=== PATIENT | male | born 1995 | race Caucasian/White ===

== ENCOUNTER 2018-01-19 22:38 | Emergency (ER) | payer OTHER ==
--- NOTE | 2018-01-19 22:42 | EDPHY ---
H & P Time Seen by Provider: 01/19/18 22:42 HPI/ROS: HPI CHIEF COMPLAINT: Abdominal pain right upper quadrant. HISTORY OF PRESENT ILLNESS: 22-year-old male, presents emergency room with right upper quadrant abdominal pain. Patient states he has had this since last night. He reports to me that he ate a large amount of pizza last night, large amount of alcohol and candy. During the night he developed some right upper quadrant abdominal pain that is rather persistent. Sharp stabbing does not radiate. Stays focally tenderness right upper quadrant. Denies chest pain or shortness of breath, denies pleuritic pain, denies cough. Pain is located right upper quadrant. It is tender palpation on exam. He has not been vomiting. No diarrhea. He has had nausea. It has been rather constant. Past Medical History: Denies medical history Past Surgical History: Denies surgical history Social History: Smokes tobacco daily marijuana daily and binge drink alcohol this weekend. Family History: Noncontributory ROS REVIEW OF SYSTEMS: 10 Systems were reviewed and negative with the exception of the elements mentioned in the history of present illness. Exam Constitutional triage nursing summary reviewed, vital signs reviewed, awake/ alert. Eyes normal conjunctivae and sclera, EOMI, PERRLA. HENT normal inspection, atraumatic, moist mucus membranes, no epistaxis, neck supple/ no meningismus, no raccoon eyes. Respiratory clear to auscultation bilaterally, normal breath sounds, no respiratory distress, no wheezing. Cardiovascular rate normal, regular rhythm, no murmur, no edema, distal pulses normal. Gastrointestinal tender palpation right upper quadrant no peritoneal signs,, no rebound, no guarding, normal bowel sounds, no distension, no pulsatile mass. Genitourinary no CVA tenderness. Musculoskeletal no midline vertebral tenderness, full range of motion, no calf swelling, no tenderness of extremities, no meningismus, good pulses, neurovascularly intact. Skin pink, warm, & dry, no rash, skin atraumatic. Neurologic awake, alert and oriented x 3, AAOx3, moves all 4 extremities equally, motor intact, sensory intact, CN II-XII intact, normal cerebellar, normal vision, normal speech. Psychiatric normal mood/affect. Heme/Lymph/Immune no lymphadenopathy. Differential Diagnosis: Differential diagnosis includes but is not limited to and in no particular order: Bowel obstruction, appendicitis, gallbladder disease, diverticulitis, colitis, enteritis, perforated viscus, gastritis, GERD , esophagitis, urinary tract infection, pyelonephritis, kidney stones Medical Decision Making: Plan for this patient IV establishment IV fluid bolus , Dilaudid 0.5 mg for pain control, 4 mg Zofran for nausea basic blood work, lipase, LFTs, bilirubin, chest x-ray upright, re-evaluate. Re-evaluation: Ultrasound right upper quadrant negative for acute pathology. Called to me by Dr. Cornejo. CT scan abdomen pelvis with IV contrast negative for acute appendicitis. Otherwise no acute inflammation visualized. By Dr. Cornejo. Chest x-ray reviewed. Negative for acute cardiopulmonary disease. Blood work reviewed. Negative D-dimer. 0201: Patient resting comfortably no acute distress. Feels better. Recommend Zantac and GI follow-up. Additionally return precautions discussed with the patient. Patient understands return emergency room if worsening abdominal pain, fever, vomiting. Source: Patient Constitutional: Initial Vital Signs Temperature (C) 37.1 C 01/19/18 22:40 Heart Rate 91 01/19/18 22:40 Respiratory Rate 16 01/19/18 22:40 Blood Pressure 119/68 01/19/18 22:40 O2 Sat (%) 96 01/19/18 22:40 O2 Delivery Mode Room Air Allergies/Adverse Reactions: grass pollen Allergy (Verified 01/19/18 22:42) Home Medications: Medication Instructions Recorded Albuterol 01/19/18 Ranitidine HCl [Zantac] 150 mg PO DAILY #14 tablet 01/20/18 Medical Decision Making - Diagnostics Imaging Results: Imaging Impressions Abdomen Ultrasound 01/19/18 22:50 Impression: Normal right upper quadrant ultrasound. Findings and recommendations discussed with Dennis Lee MD at 2335 hour, 01/19/2018. Chest X-Ray 01/19/18 22:51 Impression: No acute cardiopulmonary process. Abdomen CT 01/19/18 23:36 Impression: No acute intra-abdominal process. Findings and recommendations discussed with Dennis Lee MD at 0003 hour, 01/20/2018. - Data Points Laboratory Results: Laboratory Results 01/19/18 22:55 01/19/18 22:55 01/19/18 01/19/18 01/19/18 23:30 22:55 22:55 WBC RBC Hgb Hct MCV MCH MCHC RDW Plt Count MPV Neut % (Auto) Lymph % (Auto) [place] % (Auto) Eos % (Auto) Baso % (Auto) Nucleat RBC Rel Count Absolute Neuts (auto) Absolute Lymphs (auto) Absolute Monos (auto) Absolute Eos (auto) Absolute Basos (auto) Absolute Nucleated RBC Immature Gran % Immature Gran # D-Dimer < 0.27 ug/mLFEU ug/mLFEU (0.00-0.50) Sodium 134 mEq/L L mEq/L (135-145) Potassium 3.7 mEq/L mEq/L (3.3-5.0) Chloride 100 mEq/L mEq/L (97-110) Carbon Dioxide 24 mEq/l mEq/l (22-31) Anion Gap 10 mEq/L mEq/L (6-14) BUN 8 mg/dL mg/dL (7-23) Creatinine 0.9 mg/dL mg/dL (0.7-1.3) Estimated GFR > 60 Glucose 97 mg/dL mg/dL (70-100) Calcium 9.1 mg/dL mg/dL (8.5-10.4) Total Bilirubin 0.7 mg/dL mg/dL (0.1-1.4) Conjugated Bilirubin 0.2 mg/dL mg/dL (0.0-0.5) Unconjugated Bilirubin 0.5 mg/dL mg/dL (0.0-1.1) AST 21 IU/L IU/L (17-59) ALT 30 IU/L IU/L (21-72) Alkaline Phosphatase 67 IU/L IU/L (38-126) Total Protein 6.7 g/dL g/dL (6.3-8.2) Albumin 4.1 g/dL g/dL (3.5-5.0) Lipase 26 IU/L IU/L (23-300) Urine Color YELLOW Urine Appearance CLEAR Urine pH 6.0 (5.0-7.5) Ur Specific [place] 1.016 (1.002-1.030) Urine Protein NEGATIVE (NEGATIVE) Urine Ketones NEGATIVE (NEGATIVE) Urine Blood NEGATIVE (NEGATIVE) Urine Nitrate NEGATIVE (NEGATIVE) Urine Bilirubin NEGATIVE (NEGATIVE) Urine Urobilinogen NEGATIVE EU EU (0.2-1.0) Ur Leukocyte Esterase NEGATIVE (NEGATIVE) Urine Glucose NEGATIVE (NEGATIVE) 10/30/18 22:55 WBC 7.79 10^3/uL 10^3/uL (3.80-9.50) RBC 4.91 10^6/uL 10^6/uL (4.40-6.38) Hgb 15.8 g/dL g/dL (13.7-17.5) Hct 43.9 % % (40.0-51.0) MCV 89.4 fL fL (81.5-99.8) MCH 32.2 pg pg (27.9-34.1) MCHC 36.0 g/dL g/dL (32.4-36.7) RDW 11.9 % % (11.5-15.2) Plt Count 187 10^3/uL 10^3/uL (150-400) MPV 10.3 fL fL (8.7-11.7) Neut % (Auto) 74.5 % H % (39.3-74.2) Lymph % (Auto) 9.4 % L % (15.0-45.0) [place] % (Auto) 15.0 % H % (4.5-13.0) Eos % (Auto) 0.3 % L % (0.6-7.6) Baso % (Auto) 0.4 % % (0.3-1.7) Nucleat RBC Rel Count 0.0 % % (0.0-0.2) Absolute Neuts (auto) 5.81 10^3/uL 10^3/uL (1.70-6.50) Absolute Lymphs (auto) 0.73 10^3/uL L 10^3/uL (1.00-3.00) Absolute Monos (auto) 1.17 10^3/uL H 10^3/uL (0.30-0.80) Absolute Eos (auto) 0.02 10^3/uL L 10^3/uL (0.03-0.40) Absolute Basos (auto) 0.03 10^3/uL 10^3/uL (0.02-0.10) Absolute Nucleated RBC 0.00 10^3/uL 10^3/uL (0-0.01) Immature Gran % 0.4 % % (0.0-1.1) Immature Gran # 0.03 10^3/uL 10^3/uL (0.00-0.10) D-Dimer Sodium Potassium Chloride Carbon Dioxide Anion Gap BUN Creatinine Estimated GFR Glucose Calcium Total Bilirubin Conjugated Bilirubin Unconjugated Bilirubin AST ALT Alkaline Phosphatase Total Protein Albumin Lipase Urine Color Urine Appearance Urine pH Ur Specific [place] Urine Protein Urine Ketones Urine Blood Urine Nitrate Urine Bilirubin Urine Urobilinogen Ur Leukocyte Esterase Urine Glucose Medications Given: Discontinued Medications Al Hydroxide/Mg Hydroxide (Maalox Susp) 30 ml PO ONCE ONE Stop: 01/20/18 00:12 Last Admin: 01/20/18 00:13 Dose: 30 ml Famotidine (Pepcid) 20 mg IVP EDNOW ONE Stop: 01/19/18 23:38 Last Admin: 01/19/18 23:43 Dose: 20 mg Hydromorphone HCl (Dilaudid) 0.5 mg IVP EDNOW ONE Stop: 01/19/18 22:51 Last Admin: 01/19/18 22:57 Dose: 0.5 mg Hyoscyamine Sulfate (Levsin, Hyomax-Sl) 0.25 mg PO ONCE ONE Stop: 01/20/18 00:12 Last Admin: 01/20/18 00:13 Dose: 0.25 mg Sodium Chloride (Ns) 1,000 mls @ 0 mls/hr IV EDNOW ONE; Wide Open PRN Reason: Protocol Stop: 01/19/18 22:51 Last Admin: 01/19/18 22:56 Dose: 1,000 mls Lidocaine (Lidocaine 2% Viscous) 15 ml PO ONCE ONE Stop: 01/20/18 00:12 Last Admin: 01/20/18 00:13 Dose: 15 ml Ondansetron HCl (Zofran) 4 mg IVP EDNOW ONE Stop: 01/19/18 22:51 Last Admin: 01/19/18 22:57 Dose: 4 mg Departure - Departure Disposition: Home, Routine, Self-Care Clinical Impression: Abdominal pain, Gastritis Condition: Good Instructions: Ranitidine (By mouth), Gastritis (ED), Acute Abdominal Pain (ED) Additional Instructions: 1. No spicy fatty greasy foods. 2. No alcohol 3. Stay away from coffee, alcohol, spicy thing 4. Zantac as prescribed 5. Follow up with GI. Referrals: NONE *PRIMARY CARE P,. [Primary Care Provider] - As per Instructions Javier Phillips MD [Medical Doctor] - As per Instructions Prescriptions: Ranitidine HCl [Zantac] 150 mg PO DAILY #14 tablet
[2018-01-19] MEDS ORDERED: NS 1,000 ML IV ONE (22:50)
[2018-01-19] MEDS ORDERED: ONDANSETRON 4 MG/2 ML VIAL IVP ONE (22:50)
[2018-01-19] MEDS ORDERED: HYDROmorphONE/DILAUDID 2 MG/ML INJ IVP ONE (22:50)
[2018-01-19 23:12] LABS: PLATELET COUNT 187 10^3/uL (150-400)
[2018-01-19] MEDS ORDERED: FAMOTIDINE 20 MG/2 ML SDV IVP ONE (23:37)
[2018-01-19] MEDS ORDERED: IOPAMIDOL (ISOVUE-300) 100 ML BTL ONE (23:40)
[2018-01-20] MEDS ORDERED: HYOSCYAMINE SULFATE 0.125 MG TAB PO ONE (00:11)
[2018-01-20] MEDS ORDERED: LIDOCAINE 2% VISCOUS 15 ML UDCUP PO ONE (00:11)
[2018-01-20] MEDS ORDERED: MAG HYDROX/AL HYDROX/SIMETH 30 ML UDCUP PO ONE (00:11)
[2018-01-20] MEDS ORDERED: MAG HYDROX/AL HYDROX/SIMETH 30 ML UDCUP ONE (00:12)
[2018-01-20] MEDS ORDERED: LIDOCAINE 2% VISCOUS 15 ML UDCUP ONE (00:12)
[2018-01-20] MEDS ORDERED: HYOSCYAMINE SULFATE 0.125 MG TAB ONE (00:12)
[2018-01-20 02:11] VITALS: BP 119/72
== END 2018-01-20 02:11 | disposition home or self-care (01) ==
DX: R10.11 Right upper quadrant pain (principal); K29.70 Gastritis, unspecified, without bleeding; E86.9 Volume depletion, unspecified; F17.200 Nicotine dependence, unspecified, uncomplicated
CPT/HCPCS: 96374; J1170; J2405; Q9967